=== PATIENT | male | born 1990 | race Caucasian/White ===

== ENCOUNTER → 2018-02-11 | Outpatient (CLI) | payer OTHER | END | disposition home or self-care (01) | LOC: RT 09:17 | DX: G25.2 Other specified forms of tremor (principal) | CPT/HCPCS: 95816 ==

== ENCOUNTER → 2018-06-07 | Outpatient (CLI) | payer OTHER ==
[~2018-06-07] MED LIST: QUET25TA5 PO
== END | disposition home or self-care (01) ==
LOC: LAB 16:25
PROVIDERS: ATTEND Family Medicine
DX: Z72.51 High risk heterosexual behavior (principal)
CPT/HCPCS: 36415; 86592; 86703; 86705; 86709; 86803; 87340; 87491; 87591

== ENCOUNTER → 2018-12-26 | Outpatient (CLI) | payer OTHER ==
--- NOTE | 2018-12-26 16:06 | KCIC ---
Testicle ultrasound HISTORY: Testicle pain and swelling. FINDINGS: Right testicle measures 5.4 x 3.5 x 2.5 cm. Blood supply and vascularity appears within normal limits. Echotexture within normal limits with no focal lesion. Right epididymis appears unremarkable. There is evidence of a right varicocele. Left testicle measures 5.2 x 2.9 x 3.4 cm. Homogeneous echotexture. Blood supply and vascularity are intact. Left epididymis appears unremarkable. Left-sided varicocele is noted. IMPRESSION: Bilateral varicoceles, left greater than right. Electronically signed by: Carlton Beavers MD (12/26/2018 4:03 PM) [id number]
== END | disposition home or self-care (01) ==
LOC: KCIC US 14:39
PROVIDERS: ATTEND Family Medicine
DX: I86.1 Scrotal varices (principal)
CPT/HCPCS: 76870

== ENCOUNTER → 2021-10-28 | Outpatient (CLI) | payer OTHER ==
[2021-10-28 09:49] LABS: ALBUMIN 4.3 g/dL (3.4-5.0); ALBUMIN/GLOBULIN RATIO 1.4 (1.0-1.7); CALCIUM 8.8 mg/dL (8.5-10.1); CREATININE 0.9 mg/dL (0.7-1.3); GFR 97.8; POTASSIUM 4.3 mmol/L (3.5-5.1); TOTAL BILIRUBIN 0.5 mg/dL (0.2-1.0); TOTAL PROTEIN 7.4 g/dL (6.4-8.2)
[2021-10-28 10:04] LABS: CHOLESTEROL/HDL RATIO 2.6
== END ==
LOC: LAB 08:57
PROVIDERS: ATTEND Family Medicine
DX: Z13.220 Encounter for screening for lipoid disorders (principal)
CPT/HCPCS: 36415; 80053; 80061; 83721